=== PATIENT | female | born 1980 | race Two or more races ===

== ENCOUNTER 2024-01-22 01:05 | Emergency (ER) | payer MEDICAID ==
[~2024-01-22] VITALS: Ht 154.9 cm; Wt 69.1 kg
[2024-01-22 01:14] VITALS: TEMP 98.4
[2024-01-22 01:36] LABS: COVID AG,FIA SOURCE NASAL SWAB
[2024-01-22 02:08] LABS: INFLUENZA TYPE A NEGATIVE FOR TYPE A (NEGATIVE); INFLUENZA TYPE B NEGATIVE FOR TYPE B (NEGATIVE); SARS-COV2 (COVID) ANTIGEN,FIA Negative (Negative)
[2024-01-22 02:09] LABS: RAPID GROUP A STREP NEGATIVE (NEGATIVE)
[2024-01-22 04:55] VITALS: BP 163/90; O2SAT 99
[2024-01-22] MEDS: OXYMETAZOLINE HCL 0.05% 15 ML NASAL SPRAY NASAL ONE (05:22)
[2024-01-22 05:35] VITALS: PULSE 98; RESP 20; O2SAT 99
[2024-01-22] MEDS: ALBUTEROL SULFATE HFA 90 MCG/PUFF 8 GM INHALER IH ONE (05:37)
[2024-01-22] MEDS: PROMETHAZINE HCL/CODEINE 6.25-10MG/5ML SOLUTION UDCUP PO ONE (05:39)
== END 2024-01-22 05:56 | disposition home or self-care (01) ==
LOC: EMS 01:07
DX: J01.90 Acute sinusitis, unspecified (principal); R05.9 Cough, unspecified; Z20.822 Contact with and (suspected) exposure to COVID-19
CPT/HCPCS: 99284; 71046; 87426; 87430; 87804; 94640; J3535